=== PATIENT | male | born 1985 | race Hispanic/Latino ===

== ENCOUNTER 2018-08-01 03:16 | Emergency (ER) | payer SELFPAY ==
[2018-08-01] MEDS ORDERED: diphenhydrAMINE 50 MG/ML VIAL ONE (03:52)
[2018-08-01] MEDS ORDERED: Lidocaine Viscous Sol 2% 15 ml UD Cup ONE (03:52)
[2018-08-01] MEDS ORDERED: Mag-Al 1200 mg/1200 mg/30 ML UDCUP ONE (03:52)
[2018-08-01] MEDS ORDERED: diphenhydrAMINE 50 MG CAP ONE (03:53)
== END 2018-08-01 04:38 | disposition home or self-care (01) ==
LOC: ERS 03:16
DX: K21.9 Gastro-esophageal reflux disease without esophagitis (principal); L29.9 Pruritus, unspecified
CPT/HCPCS: 99283; J1200

== ENCOUNTER 2018-11-10 08:00 | Emergency (ER) | payer SELFPAY ==
[2018-11-10] MEDS ORDERED: methylPREDNISolone Sod Succ/PF 125 MG/2 ML VIAL ONE (08:17)
[2018-11-10] MEDS ORDERED: diphenhydrAMINE 50 MG/ML VIAL ONE (08:17)
[2018-11-10] MEDS ORDERED: Famotidine/PF 20 mg/2ml Vial ONE (08:17)
== END 2018-11-10 08:55 | disposition home or self-care (01) ==
LOC: ERS 08:00
DX: L50.0 Allergic urticaria (principal)
CPT/HCPCS: 96374; 96375; J1200; J2930; S0028

== ENCOUNTER 2021-10-21 10:43 | Emergency (ER) | payer SELFPAY ==
[2021-10-21] MEDS ORDERED: Ketorolac Tromethamine 30 MG/ML VIAL ONE (11:03)
== END 2021-10-21 12:20 | disposition home or self-care (01) ==
LOC: ERS 10:43
DX: S93.401A Sprain of unspecified ligament of right ankle, initial encounter (principal); X50.1XXA Overexertion from prolonged static or awkward postures, initial encounter
CPT/HCPCS: 96372; J1885